=== PATIENT | female | born 1955 | race Caucasian/White ===

== ENCOUNTER 2016-10-26 21:08 | Emergency (ER) | payer SELFPAY ==
[2016-10-26] MEDS ORDERED: IOPAMIDOL 300 (61%) 100 ML VIAL IV ONE (21:09)
[2016-10-26 22:12] LABS: ABSOLUTE NEUTROPHIL COUNT 6.3 K/mm3 (1.8-7.7); BASO # 0.1 K/mm3 (0.0-0.2); BASO % 0.6 % (0.2-1.0); EOS # 0.3 (0.0-0.5); EOS % 2.4 % (0.9-2.9); HEMATOCRIT 41.7 % (37.0-47.0); HEMOGLOBIN 13.8 gm/l (12.0-16.0); IMM NEUT% 0.4 % (0-1); LYMPH # 3.2 (1.0-4.8); LYMPH % 30.6 % (15-45); MEAN CELL VOLUME 84.1 fl (81.0-99.0); MEAN CORPUSCULAR HEMOGLOBIN 27.8 pg (27.0-31.0); MEAN CORPUSCULAR HGB CONC 33.1 g/dl (33.0-37.0); MEAN PLATELET VOLUME 10.5 fl (7.4-10.4); MONO # 0.7 (0.0-0.8); MONO % 6.2 % (4-12); NEUT % 59.8 % (43-75); PLATELET COUNT 169 K/mm3 (130-400); RED CELL DISTRIBUTION WIDTH 14.5 % (11.5-14.5)
[2016-10-26 22:24] LABS: INR 1.8; PROTHROMBIN TIME 19.5 SECONDS (9.3-11.4)
[2016-10-26 22:28] LABS: ALB/GLOB RATIO 1.2 (>1.0); ALBUMIN 3.6 gm/dL (3.5-5.7); CALCIUM 9.1 mg/dL (8.6-10.3); MAGNESIUM 1.7 mg/dL (1.9-2.7)
[2016-10-26 22:35] LABS: TROPONIN I < 0.01 ng/ml (0.0-0.06)
[2016-10-26 22:38] LABS: CKMB ISOENZYME 1.1 ng/ml (0.6-6.3)
[2016-10-26 23:07] LABS: SPECIFIC GRAVITY 1.015 (1.001-1.030); URINE APPEARANCE CLEAR; URINE BILIRUBIN NEGATIVE (NEGATIVE); URINE BLOOD NEGATIVE (NEGATIVE); URINE COLOR AMBER; URINE GLUCOSE (UA) NEGATIVE (NEGATIVE); URINE LEUKOCYTE ESTERASE NEGATIVE (NEGATIVE); URINE NITRITE NEGATIVE (NEGATIVE); URINE PROTEIN NEGATIVE (NEGATIVE); URINE UROBILINOGEN 4 mg/dL (0-1 mg/dl)
[2016-10-26] MEDS ORDERED: HYDROMORPHONE HCL 0.5 MG/0.5 ML SYRINGE ONE (23:58)
[2016-10-27] MEDS ORDERED: NICOTINE 14 MG PATCH 1 EACH TD ONE (00:04)
[2016-10-27] MEDS ORDERED: HYDROMORPHONE HCL 0.5 MG/0.5 ML SYRINGE ONE (01:32)
--- NOTE | 2016-10-27 10:20 | CT ---
Exam: CT abdomen and pelvis with contrast COMPARISON: None INDICATION: Right upper quadrant pain since 10/20/2016. TECHNIQUE: CT examination of the abdomen and pelvis was obtained following the administration of 100 of Isovue-300 intravenous contrast. FINDINGS: There is a lobulated low-density lesion within the inferior right lobe of the liver with surrounding ill-defined increased enhancement measuring up to 2.5 cm in diameter. A minimal amount of inflammatory stranding is seen along the liver capsule this location. No additional focal liver lesions are identified. Hepatic steatosis is appreciated. Gallbladder is absent. There is no intrahepatic ductal dilation. The common bile duct is prominent at 12 mm but this may simply be related to postcholecystectomy effect. There is a 2.8 cm fat-containing mass within the right adrenal gland compatible with either a lipoma or an adrenal myelolipoma, of no clinical concern. Left adrenal gland is unremarkable. Spleen is normal in size. Tiny hiatal hernia is noted. A few mildly prominent lymph nodes are noted adjacent to the distal esophagus measuring up to 9 mm which are of uncertain significance. Prominent portacaval lymph node is identified measuring up to 12 mm in short axis diameter. Pancreas is within normal limits. Kidneys are unremarkable. Atheromatous and ectatic abdominal aorta which measures up to 2.7 cm in diameter. Uterus is absent. There is no adnexal mass. Small fat-containing left inguinal hernia is noted. Urinary bladder within normal limits. Bowel is unremarkable and there is no bowel obstruction or free fluid. Lung bases are clear. No worrisome osseous abnormality is identified. IMPRESSION: 1. 2.5 cm lesion within the inferior right lobe of liver with surrounding inflammatory changes of the liver capsule which raises concern for hepatic abscess. 2. No additional findings identified to explain right upper quadrant pain. 3. Chronic incidental findings above, including post cholecystectomy changes, hepatic steatosis, atheromatous aorta, post hysterectomy, fat-containing right adrenal mass and small fat-containing left inguinal hernia. Prominent portal caval and distal paraesophageal lymph nodes are noted and are of uncertain etiology and significance. Preliminary report transmitted to the emergency department from [facility] at 2334 hours 10/26/2016.
== END 2016-10-27 02:45 | disposition short-term general hospital (02) ==
LOC: ED 21:08
DX: R10.11 Right upper quadrant pain (principal); K76.9 Liver disease, unspecified; I48.91 Unspecified atrial fibrillation; K21.9 Gastro-esophageal reflux disease without esophagitis; E11.9 Type 2 diabetes mellitus without complications; I10 Essential (primary) hypertension; J44.9 Chronic obstructive pulmonary disease, unspecified; E03.9 Hypothyroidism, unspecified; F17.210 Nicotine dependence, cigarettes, uncomplicated; Z79.84 Long term (current) use of oral hypoglycemic drugs; Z79.01 Long term (current) use of anticoagulants
CPT/HCPCS: 83690; 85025; 82550; 82553; 80053; 83735; 85610; 81003; 84484; 74177; 96376; 99285 ×2; 96374; 93005; A9270; Q9967; J1170 ×2